=== PATIENT | male | born 1970 | race Hispanic/Latino ===

== ENCOUNTER 2019-07-07 13:57 | Outpatient (CLI) | payer OTHER ==
--- NOTE | 2019-07-07 14:29 | RAD ---
RIGHT SHOULDER TWO VIEWS: INDICATIONS: Disability evaluation. FINDINGS: There is moderate osteoarthritis of the right shoulder without fracture or dislocation. IMPRESSION: Moderate osteoarthritis. POS: [facility]
--- NOTE | 2019-07-07 14:31 | RAD ---
RIGHT HAND TWO VIEWS: INDICATIONS: Disability evaluation. FINDINGS: There is chronic osseous deformity of the DRUJ as well as the distal articular surface of the radius which may be on the basis of a chronic post traumatic abnormality. Osteoarthritis is also seen within the carpus. No acute osseous abnormality visualized. IMPRESSION: 1. Chronic arthropathy of the right wrist. 2. No acute osseous abnormality. POS: C
== END 2019-07-07 13:58 | disposition home or self-care (01) ==
LOC: NAV RAD 13:57
PROVIDERS: ATTEND Family Medicine
DX: M25.531 Pain in right wrist (principal); M25.511 Pain in right shoulder; M13.831 Other specified arthritis, right wrist; M19.011 Primary osteoarthritis, right shoulder

== ENCOUNTER 2022-09-28 09:46 | Emergency (ER) | payer MEDICARE, MEDICAID | END 2022-09-28 11:25 | disposition home or self-care (01) | LOC: NAV ERS 09:46 | DX: R04.0 Epistaxis (principal); I10 Essential (primary) hypertension; Z87.891 Personal history of nicotine dependence; Z79.899 Other long term (current) drug therapy | CPT/HCPCS: 99283 ==